=== PATIENT | male | born 2005 | race African-American/Black ===

== ENCOUNTER 2023-05-10 15:31 | Emergency (ER) | payer SELFPAY ==
[~2023-05-10] VITALS: Ht 182 cm; Wt 66.8 kg
--- NOTE | 2023-05-10 15:40 | ED Chest Pain ---
General Chief Complaint: Chest Pain Stated Complaint: CHEST PAIN; SOB Source: patient Exam Limitations: no limitations History of Present Illness Date Seen by Provider: May 10, 2023 Time Seen by Provider: 15:28 Initial Comments 17-year-old male who is otherwise healthy presents to the emergency department today for burning in his chest up into his throat. Symptoms present for about 2 weeks. They do seem to be worse after he eats and worse with lying flat. No fevers or chills but they do cause him to be short of breath. He states he has been coughing as well but this is nonproductive. No changes in bowel or bladder habits, no bloody or dark tarry stools. No abdominal pain. He states acid reflux does run in their family. No cardiac disease. All other systems reviewed and negative except documented per HPI. Voice recognition software was used to help create this chart Allergies and Home Medications Allergies Coded Allergies: No Known Drug Allergies (Unverified , 05/10/23) Patient Home Medication List Home Medication List Reviewed: Yes Review of Systems Review of Systems Constitutional: see HPI Past Esagdby-Mzfazy-Bzpwan Hx Patient Social History Tobacco Use?: No Use of E-Cig and/or Vaping dev: No Substance use?: No Alcohol Use?: No Physical Exam Vital Signs Vital Signs - First Documented 05/10/23 15:31 Temp 36.1 Pulse 76 Resp 16 B/P (MAP) 131/75 (93) Pulse Ox 100 O2 Delivery Room Air Capillary Refill : Height, Weight, BMI Height: '" Weight: lbs. oz. kg; BMI Method: General Appearance: No Apparent Distress, WD/WN HEENT: Normal ENT Inspection, Pharynx Normal Neck: Full Range of Motion, Normal Inspection, Non Tender, Supple Respiratory: Chest Non Tender, Lungs Clear, Normal Breath Sounds, No Accessory Muscle Use, No Respiratory Distress Cardiovascular: Regular Rate, Rhythm, No Murmur, Normal Peripheral Pulses Gastrointestinal: Normal Bowel Sounds, No Organomegaly, Non Tender, Soft Extremity: Normal Capillary Refill, Normal Inspection Neurologic/Psychiatric: Alert, Normal Mood/Affect Skin: Normal Color, Warm/Dry Progress/Results/Core Measures Results/Orders My Orders Orders - ALBIN WILEY DO Ekg Tracing (05/10/23 15:37) Chest Pa/Lat (2 View) (05/10/23 15:37) Lidocaine 2% Viscous 15 Ml (Xylocaine Vi (05/10/23 15:45) Antacid Suspension (Antacid Suspension (05/10/23 15:45) Sucralfate Tablet (Sucralfate Tablet) (05/10/23 15:45) Medications Given in ED Current Medications Medications Dose Ordered Sig/Manolo Route Start Time Stop Time Status Last Admin Dose Admin Al Hydrox/Mg Hydrox/Simethicone 30 ml ONCE ONCE PO 05/10/23 15:45 05/10/23 15:46 DC 05/10/23 15:44 30 ML Lidocaine HCl 5 ml ONCE ONCE PO 05/10/23 15:45 05/10/23 15:46 DC 05/10/23 15:44 5 ML Sucralfate 1 gm ONCE ONCE PO 05/10/23 15:45 05/10/23 15:46 DC 05/10/23 15:44 1 GM Vital Signs/I&O 05/10/23 15:31 Temp 36.1 Pulse 76 Resp 16 B/P (MAP) 131/75 (93) Pulse Ox 100 O2 Delivery Room Air Comment Sinus rhythm with a rate of 61 bpm. Normal intervals. Normal axis. Early repolarization consistent with the patient's age. No other ST or T wave abnormalities. No ectopy. No STEMI. Departure Communication (Admissions) Patient is hemodynamically stable. He has no risk factors for cardiac type disease. Chest x-ray is negative for any acute cardiopulmonary abnormalities. Symptoms are quite consistent with acid reflux. He is given a GI cocktail here with some relief. Advised to start taking PPI [id number] and return to care for any severe concerns. He will follow-up with his primary doctor for any persistent symptoms. Impression Primary Impression: Atypical chest pain Disposition: 01 HOME, SELF-CARE Condition: Stable Departure-Patient Inst. Patient Instructions: Acid Reflux and GERD in Adults (DC) Add. Discharge Instructions: I recommend taking a medicine such as Nexium or Protonix [id number] daily for acid reflux. Increase your fluids at home. Avoid spicy foods. I have given you a medicine called Carafate. Use this before meals and before bedtime to help protect her stomach from acid. Return to the emergency department for any severe concerns. Follow-up with your primary doctor should your symptoms persist. All discharge instructions reviewed with patient and/or family. Voiced understanding. Scripts Sucralfate (Carafate) 1 Gram Tablet 1 GM PO ACHS for 5 Days, #20 TAB Prov: ALBIN WILEY DO 05/10/23 ALBIN WILEY DO May 10, 2023 15:40
[2023-05-10] MEDS ORDERED: SUCRALFATE 1 GM TABLET PO ONE (15:45)
[2023-05-10] MEDS ORDERED: LIDOCAINE 2% VISCOUS 15 ML UDC PO ONE (15:45)
[2023-05-10] MEDS ORDERED: ANTACID SUSPENSION 30 ML UDC PO ONE (15:45)
--- NOTE | 2023-05-10 15:55 | Diagnostic Imaging Report ---
INDICATION: Chest pain. Burning sensation in the throat COMPARISON: None FINDINGS: Frontal and lateral views of the chest demonstrate normal heart size and pulmonary vascularity. The lungs are clear. There are no signs of infiltrate, pleural effusions or pneumothoraces. The visualized osseous structures show no acute abnormalities. IMPRESSION: 1. No acute process. No signs of infiltrates, effusions or pneumothoraces. Dictated by: Dictated on workstation # [id number]
[2023-05-10] MEDS ORDERED: SUCR1TAB36 PO (16:02)
[2023-05-10 16:05] VITALS: BP 141/78
== END 2023-05-10 16:03 | disposition home or self-care (01) ==
LOC: ER FS 15:33
DX: R07.89 Other chest pain (principal)
CPT/HCPCS: 71046; 93005